=== PATIENT | female | born 1980 ===

== ENCOUNTER → 2016-05-19 | Outpatient (CLI) | payer BC | END | disposition home or self-care (01) | LOC: C.LABSPEC 17:35 | PROVIDERS: ATTEND Physician Assistant | DX: N94.9 Unspecified condition associated with female genital organs and menstrual cycle (principal) ==

== ENCOUNTER → 2016-05-23 | Outpatient (CLI) | payer BC ==
[2016-05-26 01:17] LABS: CHLAMYDIA TRACH RNA*** NOT DETECTED (NOT DETECTED); GC (NEIS GONORRHOEAE)RNA** NOT DETECTED (NOT DETECTED)
== END | disposition home or self-care (01) ==
LOC: C.LABSPEC 18:06
PROVIDERS: ATTEND Obstetrics & Gynecology
DX: N76.1 Subacute and chronic vaginitis (principal)

== ENCOUNTER → 2016-05-24 | Outpatient (CLI) | payer BC | END | disposition home or self-care (01) | LOC: C.LABSPEC 05-23 10:29 | PROVIDERS: ATTEND Obstetrics & Gynecology | DX: N76.1 Subacute and chronic vaginitis (principal) ==